=== PATIENT | female | born 1940 | race Caucasian/White ===

== ENCOUNTER → 2017-05-21 | Outpatient (CLI) | payer MEDICARE, OTHER ==
[~2017-05-21] MED LIST: ACET-458 PO; ATOR20TA9 PO; CALC-37 PO; CHOL10003 PO; CYAN100028 PO; DORZ10DR3 RIGHTEYE; FAMO-79 PO; LATA2.5D3 EACHEYE; LOSA1TAB22 PO; NAPR220C2 PO; PREG150C PO; Tums PO
== END | disposition home or self-care (01) ==
LOC: LAB 12:12
PROVIDERS: ATTEND Internal Medicine
DX: E83.119 Hemochromatosis, unspecified (principal)
CPT/HCPCS: 36415; 82728

== ENCOUNTER → 2017-05-21 | Outpatient (CLI) | payer MEDICARE, OTHER ==
[2017-05-21 12:41] LABS: CHLORIDE 104 mmol/L (98-107)
[2017-05-21 12:46] LABS: ALANINE AMINOTRANSFERASE 24 U/L (12-78); ALBUMIN 3.9 g/dL (3.4-5.0); ALKALINE PHOSPHATASE 72 U/L (45-117); ANION GAP 6 mmol/L (5-15); BILIRUBIN,TOTAL 0.7 mg/dL (0.2-1.0); CALCIUM 9.1 mg/dL (8.5-10.1); CREATININE 0.79 mg/dL (0.55-1.02); TOTAL PROTEIN 7.2 g/dL (6.4-8.2)
== END | disposition home or self-care (01) ==
LOC: STAR 11:04
PROVIDERS: ATTEND Surgery
DX: Z01.818 Encounter for other preprocedural examination (principal)
CPT/HCPCS: 36415; 80053; 93005

== ENCOUNTER 2017-05-26 06:08 | Inpatient (IN) | payer MEDICARE, OTHER ==
[~2017-05-26] VITALS: Ht 162.6 cm; Wt 69.2 kg
[2017-05-26] MEDS ORDERED: LACTATED RINGERS 1,000 ML IV SCH (06:38)
[2017-05-26] MEDS ORDERED: FENTANYL PF 250 MCG/5ML ONE (07:09)
[2017-05-26] MEDS ORDERED: MIDAZOLAM 1 MG/ML, 2ML ONE (07:09)
[2017-05-26] MEDS ORDERED: CEFAZOLIN 1,000 MG ONE ×2 (07:13→07:17)
[2017-05-26] MEDS ORDERED: PROPOFOL 10 MG/ML, 20ML ONE (07:13)
[2017-05-26] MEDS ORDERED: DEXAMETHASONE 4 MG/ML, 1ML ONE ×2 (07:13→07:17)
[2017-05-26] MEDS ORDERED: ROCURONIUM 10 MG/ML,10ML ONE (07:13)
[2017-05-26] MEDS ORDERED: SUCCINYLCHOLINE 20 MG/ML, 10ML ONE (07:13)
[2017-05-26] MEDS ORDERED: ONDANSETRON 2MG/ML, 2ML ONE ×2 (07:13→07:17)
[2017-05-26] MEDS ORDERED: EPHEDRINE 50 MG/ML, 1ML ONE ×2 (07:51)
[2017-05-26] MEDS ORDERED: OXYcodone 5 MG/5 ML ORAL.SOL UDC ONE (08:58)
[2017-05-26] MEDS ORDERED: FENTANYL PF 100 MCG/2ML ONE ×2 (08:58→09:51)
[2017-05-26] MEDS: FENTANYL PF 100 MCG/2ML IV PRN ×2 (09:00→09:20)
[2017-05-26] MEDS ORDERED: HYDROmorphone 2 MG/ML, 1ML ONE ×2 (09:11→09:51)
[2017-05-26] MEDS: HYDROmorphone 1 MG/ML, 1ML IV PRN ×4 (09:15→09:45)
[2017-05-26] MEDS ORDERED: hydrALAzine 20 MG/ML, 1ML IV PRN (09:30)
[2017-05-26] MEDS ORDERED: PROMETHAZINE 25 MG/ML, 1ML IV PRN (09:30)
[2017-05-26] MEDS ORDERED: ONDANSETRON 2MG/ML, 2ML IVPush PRN (09:30)
[2017-05-26] MEDS ORDERED: ACETAMINOPHEN 325 MG TABLET PO PRN (09:30)
[2017-05-26] MEDS ORDERED: OXYcodone 5 MG/5 ML ORAL.SOL UDC PO PRN (09:30)
[2017-05-26] MEDS ORDERED: ALBUTEROL SULFATE 2.5 MG/3 ML NPPB PRN (09:30)
[2017-05-26] MEDS ORDERED: MIDAZOLAM 1 MG/ML, 2ML IV PRN (09:30)
[2017-05-26] MEDS ORDERED: LABETALOL 5MG/ML, 20ML IV PRN (09:30)
[2017-05-26] MEDS ORDERED: MEPERIDINE/PF 25MG/0.5ML IVPush PRN (09:30)
[2017-05-26] MEDS ORDERED: ONDANSETRON 2MG/ML, 2ML IV PRN (11:30)
[2017-05-26] MEDS: LACTATED RINGERS 1,000 ML IV SCH (11:30)
[2017-05-26] MEDS ORDERED: morphine SULFATE 10 MG/ML, 1ML IV PRN (11:30)
[2017-05-26] MEDS: HYDROcodone/APAP 5/325 TABLET PO PRN ×2 (13:46→18:04)
[2017-05-26 14:00] VITALS: BP 105/58
[2017-05-26] MEDS: PREGABALIN 150 MG CAPSULE PO PRN (17:58)
[2017-05-26 18:02] LABS: ALBUMIN 3.4 g/dL (3.4-5.0); CALCIUM 7.7 mg/dL (8.5-10.1)
[2017-05-26 20:36] VITALS: BP 103/51
[2017-05-26] MEDS ORDERED: LOSARTAN 50MG TABLET PO SCH (21:00)
[2017-05-26] MEDS ORDERED: ATORVASTATIN 20 MG TABLET PO SCH (21:00)
[2017-05-26] MEDS ORDERED: HYDROCHLOROTHIAZIDE 25 MG TABLET PO SCH (21:00)
[2017-05-26] MEDS: DOCUSATE 100 MG CAPSULE PO SCH (21:05)
[2017-05-27] VITALS: BP 99/47
[2017-05-27 00:49] LABS: ALBUMIN 3.1 g/dL (3.4-5.0); CALCIUM 7.6 mg/dL (8.5-10.1)
[2017-05-27] MEDS: LACTATED RINGERS 1,000 ML IV SCH ×2 (00:50→14:10)
[2017-05-27] MEDS: HYDROcodone/APAP 5/325 TABLET PO PRN ×4 (02:28→14:56)
[2017-05-27 03:32] VITALS: BP 111/63
[2017-05-27 06:33] LABS: ALBUMIN 3.2 g/dL (3.4-5.0); CALCIUM 7.4 mg/dL (8.5-10.1)
[2017-05-27] MEDS: PREGABALIN 150 MG CAPSULE PO PRN ×2 (06:37→18:02)
[2017-05-27 07:13] VITALS: BP 95/54
[2017-05-27] MEDS ORDERED: CALCIUM CARBONATE 500 MG TAB.CHEW ONE (07:26)
[2017-05-27] MEDS ORDERED: CALCIUM CARBONATE 500 MG TAB.CHEW PO SCH (07:45)
[2017-05-27] MEDS ORDERED: LOSARTAN 50MG TABLET PO SCH (09:00)
[2017-05-27] MEDS: DOCUSATE 100 MG CAPSULE PO SCH (09:00)
[2017-05-27] MEDS ORDERED: HYDROCHLOROTHIAZIDE 25 MG TABLET PO SCH (09:00)
[2017-05-27 09:53] VITALS: BP 95/55
[2017-05-27] MEDS: CALCIUM CARBONATE 500 MG TAB.CHEW PO SCH ×2 (11:45→18:02)
[2017-05-27 12:16] LABS: ALBUMIN 3.1 g/dL (3.4-5.0); CALCIUM 7.3 mg/dL (8.5-10.1)
[2017-05-27] MEDS ORDERED: CALCITRIOL 0.5 MCG CAPSULE PO SCH (13:00)
[2017-05-27] MEDS ORDERED: CALCIUM CARBONATE 500 MG TAB.CHEW PO PRN (13:00)
[2017-05-27] MEDS ORDERED: CALCIUM CARBONATE 500 MG TAB.CHEW PO ONE (13:00)
[2017-05-27 13:56] VITALS: BP 101/62
[2017-05-27 18:19] LABS: ALBUMIN 3.3 g/dL (3.4-5.0); CALCIUM 8.3 mg/dL (8.5-10.1)
== END 2017-05-27 19:20 | disposition home or self-care (01) | DRG 627 ==
LOC: OUT 06:08 → 4NOR 11:00 → OUT 11:11 → 4NOR 11:12
PROVIDERS: ADMIT Surgery; ATTEND Surgery
PROC: 07T20ZZ Resection of Left Neck Lymphatic, Open Approach (ICD-10-PCS; 2017-05-26)
PROC: 07T10ZZ Resection of Right Neck Lymphatic, Open Approach (ICD-10-PCS; 2017-05-26)
PROC: 0GSR0ZZ Reposition Parathyroid Gland, Open Approach (ICD-10-PCS; 2017-05-26)
PROC: 0GTK0ZZ Resection of Thyroid Gland, Open Approach (ICD-10-PCS; principal; 2017-05-26 07:30)
DX: C73 Malignant neoplasm of thyroid gland (principal); G62.9 Polyneuropathy, unspecified; E78.00 Pure hypercholesterolemia, unspecified; I10 Essential (primary) hypertension; Z90.49 Acquired absence of other specified parts of digestive tract; Z90.710 Acquired absence of both cervix and uterus; Z79.899 Other long term (current) drug therapy; Z80.3 Family history of malignant neoplasm of breast; Z80.42 Family history of malignant neoplasm of prostate; Z87.891 Personal history of nicotine dependence
CPT/HCPCS: 36415; 82040; 82310; 88305; 88307; J0690; J1100; J1170; J2250; J2405; J2704; J3010; C1760; J0330; J7120

== ENCOUNTER → 2020-03-27 | Outpatient (CLI) | payer MEDICARE, OTHER ==
[~2020-03-27] MED LIST changes: +ATOR20TA37 PO; -ATOR20TA9 PO; +DORZ10DR26 RIGHTEYE; -DORZ10DR3 RIGHTEYE; -LATA2.5D3 EACHEYE; +LATA2.5D4 EACHEYE
== END | disposition home or self-care (01) ==
LOC: LAB 12:18
PROVIDERS: ATTEND Anesthesiology
DX: Z01.812 Encounter for preprocedural laboratory examination (principal); Z20.828 Contact with and (suspected) exposure to other viral communicable diseases; Z01.818 Encounter for other preprocedural examination; Z01.89 Encounter for other specified special examinations; R79.1 Abnormal coagulation profile
CPT/HCPCS: 87635